=== PATIENT | female | born 1950 | race Caucasian/White ===

== ENCOUNTER → 2016-12-21 | Outpatient (CLI) | payer MEDICARE ==
[~2016-12-21] MED LIST: ACYC800T PO; CEFD300C3 PO; CHOL20002; CRAN1CAP2; DICY20TA11 PO; HYDR-4246 PO; LEVO25TA9 PO; VITA100T5; [UNRECOGNIZED DRUG - CODE]
== END ==
LOC: LABN 11:37
PROVIDERS: ATTEND Family Medicine
DX: R19.7 Diarrhea, unspecified (principal)
CPT/HCPCS: 87507